=== PATIENT | male | born 1990 | race Asian ===

== ENCOUNTER 2023-04-25 11:42 | Emergency (ER) | payer OTHER, SELFPAY ==
[2023-04-25 11:45] VITALS: BP 123/78; PULSE 67; RESP 16; TEMP 36.6; O2SAT 99; BMI 32.3
--- NOTE | 2023-04-25 12:08 | ED.BACK ---
HPI - Back Pain/Injury General Chief Complaint: Back Pain/Injury Stated Complaint: lt lower back and rt shoulder pain Time Seen by Provider: 04/25/23 11:57 Source: patient History of Present Illness HPI Narrative: 32-year-old male presents for right-sided neck pain and left-sided buttock pain that radiates down to his knee. Patient states this has happened in the past and general evaluation to ?get ahead? of his pain. He has a history of sciatica and he is concerned that it may flare. Patient is in the middle of moving out of his house and has been sleeping on an air mattress and thinks that this may be contributing to his pain. Took a dose of Motrin earlier today with minimal relief. Denies numbness, weakness, tingling of any of his extremities, denies bowel or bladder incontinence, denies saddle anesthesia. Related Data Previous Rx's Medication Instructions Recorded diclofenac sodium 1 % topical gel 2 g topical QID #100 grams 04/25/23 (Voltaren Arthritis Pain) methocarbamol 500 mg tablet 500 mg PO TID #30 tabs 04/25/23 methylprednisolone 4 mg tablets in 4 mg PO DAILY #21 ea 04/25/23 a dose pack (Medrol (Aleks)) Allergies Allergy/AdvReac Type Severity Reaction Status Date / Time No Known Drug Allergies Allergy Verified 10/27/21 13:39 Review of Systems Review of Systems Narrative: CONSTITUTIONAL- Denies: fever, chills, fatigue HEENT- Denies: sore throat, nosebleed, vision changes RESPIRATORY- Denies: shortness of breath, cough, wheezing CARDIAC- Denies: chest pain, edema, orthopnea GI- Denies: abdominal pain, nausea, vomiting, constipation, diarrhea - Denies: frequency, dysuria, hematuria, flank pain MSK-reports: Right neck pain, left buttock pain Denies: extremity pain, extremity swelling, joint pain, joint swelling SKIN- Denies: rash, itching, burn, swelling NEUROLOGICAL- Denies: headache, numbness, weakness, dizziness PSYCHIATRIC- Denies: anxiety, depression, suicidal ideation, homicidal ideation Patient History Medical History (Updated 04/25/23 @ 12:10 by Lachelle Wesley MD) Abnormal semen analysis Encounter for infertility Family History Father Diabetes mellitus Hypertension Social History marital status: household members: spouse occupational status: employed leisure activities: exercise Smoking Status: Current some day smoker second hand exposure: No alcohol intake: current substance use type: does not use Type(s) of exercise: aerobic and weight lifting frequency: 5-6 times per week duration: 45-60 minutes/day Smoking Status: Current some day smoker alcohol intake frequency: a few times a month Substance Use Type: does not use Exam Initial Vital Signs Initial Vital Signs: Vital Signs Temperature 97.8 F 04/25/23 11:45 Pulse Rate 67 04/25/23 11:45 Respiratory Rate 16 04/25/23 11:45 Blood Pressure 123/78 04/25/23 11:45 Pulse Oximetry 99 04/25/23 11:45 Oxygen Delivery Method Room Air 04/25/23 11:45 Const: Awake, alert, no acute distress, nontoxic appearing Eyes: PERRL, EOMI, conjunctiva normal ENT: Atraumatic, dentition normal, mucous membranes moist Cardiac: regular rate, regular rhythm RESP: unlabored, clear bilaterally, no wheezing GI: Atraumatic, soft, nontender, nondistended, no rebound, no guarding MSK: Atraumatic, full range of motion, pulses equal, palpable muscle spasm right trapezius Skin: Warm, Dry, intact, no rashes Neuro: AO x3, CN II-XII grossly intact, moves all extremities Psych: affect normal, mood normal, not suicidal, not homicidal Course Course Course Narrative: Palpable muscle spasm and musculoskeletal pain, likely aggravated by moving households and sleeping on an air mattress. Neurologically and vascularly intact. Patient given anti-inflammatories, lidocaine patches, dose of steroids in the emergency department. Gentle stretching exercises counseled. Patient was counseled on the potential sedating effect of muscle relaxers and he was counseled to avoid these prior to driving or operating heavy machinery. ED return precautions discussed at bedside. Patient expressed understanding of the plan and is in agreement at this time. All questions answered at the time of discharge. Vital Signs Vital signs: Vital Signs - 8 hr 04/25/23 11:45 Temperature 97.8 F Pulse Rate 67 Respiratory Rate 16 Blood Pressure 123/78 Pulse Oximetry 99 Oxygen Delivery Method Room Air Discharge Plan Departure Patient Disposition: Home Clinical Impression: Back strain, Muscle spasm Instructions: DI for Muscle Strain, DI for Back Spasm Prescriptions: New diclofenac sodium [Voltaren Arthritis Pain] 1 % gel 2 g topical QID Qty: 100 0RF Rx Instructions: apply to single elbow, wrist or hand; for hand includes palm/fingers/back of hand methylprednisolone [Medrol (Aleks)] 4 mg tablets,dose pack 4 mg PO DAILY Qty: 21 0RF methocarbamol 500 mg tablet 500 mg PO TID Qty: 30 0RF Stand Alone Forms: Patient Portal/API
[2023-04-25] MEDS: DEXAMETHASONE 10 MG/ML VIAL PO (12:15)
[2023-04-25] MEDS: KETOROLAC 30 MG/ML VIAL IM (12:15)
[2023-04-25] MEDS: LIDOCAINE PATCH 1 EACH ADH..PATCH TOP (12:20)
[2023-04-25 12:35] VITALS: BP 121/79; PULSE 80; RESP 16; O2SAT 100
== END 2023-04-25 12:35 | disposition home or self-care (01) ==
PROVIDERS: Emergency Provider Emergency Medicine
DX: S39.012A Strain of muscle, fascia and tendon of lower back, initial encounter (principal); M62.830 Muscle spasm of back
CPT/HCPCS: 96372; 99283; J1100; J1885